=== PATIENT | male | born 1985 | race Caucasian/White ===

== ENCOUNTER 2020-06-21 13:14 | Emergency (ER) | payer MEDICAID ==
[~2020-06-21] VITALS: Ht 185.4 cm; Wt 85.0 kg
[2020-06-21 13:27] VITALS: BP 126/79
== END 2020-06-21 14:42 | disposition home or self-care (01) ==
LOC: ED 14:35
DX: S61.212A Laceration without foreign body of right middle finger without damage to nail, initial encounter (principal); Z87.891 Personal history of nicotine dependence; X58.XXXA Exposure to other specified factors, initial encounter; Y93.89 Activity, other specified; Y92.009 Unspecified place in unspecified non-institutional (private) residence as the place of occurrence of the external cause; Y99.8 Other external cause status
CPT/HCPCS: 29130; 99283

== ENCOUNTER 2020-07-01 11:18 | Day surgery (SDC) | payer MEDICAID ==
[~2020-07-01] VITALS: Ht 185.4 cm; Wt 83.0 kg
[~2020-07-01 11:18] MED LIST: BUPIVACAINE/PF 0.5% ONE; EPHEDRINE 50 MG/ML, 1ML IVPush PRN; FENTANYL PF 100 MCG/2ML IV PRN; HYDROmorphone 1 MG/ML, 1ML INJ IVPush PRN; LABETALOL 5MG/ML, 20ML IV PRN; ONDANSETRON 2MG/ML, 2ML IVPush PRN; OXYcodone 5 MG/5 ML ORAL.SOL UDC PO PRN; PROMETHAZINE 25 MG/ML, 1ML IVPush PRN; hydrALAzine 20 MG/ML, 1ML IV PRN
[2020-07-01 11:54] VITALS: BP 142/71
[2020-07-01] MEDS ORDERED: ACETAMINOPHEN 500 MG TABLET PO ONE (12:30)
[2020-07-01] MEDS ORDERED: CHLORHEXIDINE 15 ML UDC ONE (12:30)
[2020-07-01] MEDS ORDERED: MIDAZOLAM 1 MG/ML, 2ML ONE (12:50)
[2020-07-01] MEDS ORDERED: FENTANYL PF 250 MCG/5ML ONE (12:50)
[2020-07-01] MEDS ORDERED: DEXAMETHASONE 4 MG/ML, 5ML ONE (12:51)
[2020-07-01] MEDS ORDERED: PROPOFOL 50 ML ONE (12:51)
[2020-07-01] MEDS ORDERED: ONDANSETRON 2MG/ML, 2ML ONE (12:51)
[2020-07-01] MEDS ORDERED: LIDOCAINE-MPF 1%, 2ML ONE (12:52)
[2020-07-01] MEDS ORDERED: CEFAZOLIN 1,000 MG ONE (12:54)
[2020-07-01] MEDS ORDERED: BUPIVACAINE/PF 0.5% ONE (13:09)
[2020-07-01] MEDS ORDERED: KETOROLAC 30 MG/1 ML ONE (13:34)
[2020-07-01] MEDS ORDERED: CLINDAMYCIN 150 MG/ML, 6ML ONE (13:34)
[2020-07-01] MEDS ORDERED: BUPIVACAINE/PF 0.25% INFIL ONE (13:43)
== END 2020-07-01 16:00 | disposition home or self-care (01) ==
LOC: OUT 11:18
PROVIDERS: ATTEND Surgery Surgery of the Hand
DX: S66.324A Laceration of extensor muscle, fascia and tendon of right ring finger at wrist and hand level, initial encounter (principal); F17.210 Nicotine dependence, cigarettes, uncomplicated; X58.XXXA Exposure to other specified factors, initial encounter; Y93.89 Activity, other specified; Y92.89 Other specified places as the place of occurrence of the external cause; Y99.8 Other external cause status; Z88.8 Allergy status to other drugs, medicaments and biological substances
CPT/HCPCS: 26418; J1100; J1885; J2250; J2405; J2704; J3010; J0690

== ENCOUNTER 2020-07-02 15:04 | Emergency (ER) | payer MEDICAID ==
[~2020-07-02] VITALS: Ht 185.4 cm; Wt 82.6 kg
[2020-07-02 15:17] VITALS: BP 132/80
[2020-07-02] MEDS ORDERED: NEOSPORIN OINT. PKT 1 PACKET ONE (15:54)
== END 2020-07-02 16:11 | disposition home or self-care (01) ==
LOC: ED 16:10
DX: L03.011 Cellulitis of right finger (principal); L76.82 Other postprocedural complications of skin and subcutaneous tissue; F17.200 Nicotine dependence, unspecified, uncomplicated
CPT/HCPCS: 99283

== ENCOUNTER 2020-07-14 06:55 | Emergency (ER) | payer MEDICAID ==
[~2020-07-14] VITALS: Ht 182.9 cm; Wt 83.8 kg
[2020-07-14 07:00] VITALS: BP 120/79
[2020-07-14] MEDS ORDERED: CLIN300C9 PO (07:14)
--- NOTE | 2020-07-14 07:14 | NUR ---
PT IS A 34/M COMPLAINING OF PAIN TO THE RIGHT 3RD DIGIT AFTER TENDON REPAIR SURGERY ON 07/01/20. THERE IS SOME REDNESS AND SWELLING. PT STATES HE IS COMPLIANT WITH HIS ANTIBIOTICS PRESCRIBED AFTER SURGERY. PROVIDER AT BEDSIDE FOR EVAL. CALL LIGHT WITHIN REACH. NO FURTHER NEEDS AT THIS TIME.
[2020-07-14] MEDS ORDERED: CLINDAMYCIN 300 MG CAPSULE ONE (07:18)
[2020-07-14] MEDS ORDERED: CLINDAMYCIN 300 MG CAPSULE PO ONE (07:30)
== END 2020-07-14 08:15 | disposition home or self-care (01) ==
LOC: ED 07:10
DX: S60.031A Contusion of right middle finger without damage to nail, initial encounter (principal); Z48.00 Encounter for change or removal of nonsurgical wound dressing; F17.210 Nicotine dependence, cigarettes, uncomplicated; Z91.19 Patient's noncompliance with other medical treatment and regimen; W20.8XXA Other cause of strike by thrown, projected or falling object, initial encounter; Y93.89 Activity, other specified; Y92.89 Other specified places as the place of occurrence of the external cause; Y99.0 Civilian activity done for income or pay
CPT/HCPCS: 99283

== ENCOUNTER 2020-08-09 03:32 | Emergency (ER) | payer MEDICAID ==
[~2020-08-09] VITALS: Ht 185.4 cm; Wt 84.0 kg
[~2020-08-09 03:32] MED LIST changes: -BUPIVACAINE/PF 0.5% ONE; +CLIN300C9 PO; -EPHEDRINE 50 MG/ML, 1ML IVPush PRN; -FENTANYL PF 100 MCG/2ML IV PRN; -HYDROmorphone 1 MG/ML, 1ML INJ IVPush PRN; -LABETALOL 5MG/ML, 20ML IV PRN; -ONDANSETRON 2MG/ML, 2ML IVPush PRN; -OXYcodone 5 MG/5 ML ORAL.SOL UDC PO PRN; -PROMETHAZINE 25 MG/ML, 1ML IVPush PRN; -hydrALAzine 20 MG/ML, 1ML IV PRN
[2020-08-09 03:38] VITALS: BP 114/78
[2020-08-09] MEDS ORDERED: CLINDAMYCIN 300 MG CAPSULE PO ONE (04:00)
[2020-08-09] MEDS ORDERED: CLINDAMYCIN 300 MG CAPSULE ONE (04:00)
== END 2020-08-09 04:22 | disposition home or self-care (01) ==
LOC: ED 04:00
DX: L03.011 Cellulitis of right finger (principal); F17.290 Nicotine dependence, other tobacco product, uncomplicated; Z88.1 Allergy status to other antibiotic agents
CPT/HCPCS: 99283; 99406

== ENCOUNTER 2020-09-20 23:25 | Emergency (ER) | payer MEDICAID ==
[~2020-09-20] VITALS: Ht 185.4 cm; Wt 89.2 kg
--- NOTE | 2020-09-21 00:18 | NUR ---
PT STATES, SURGERY ON RIGHT HAND THIRD FINGER THAT IS HEALING TODAY THAT IT HAD AN INFECTION THAT WENT TO THE BONE" THAT IT HAS NOT HEALED COMPLETLY.
--- NOTE | 2020-09-21 00:22 | NUR ---
PT STATES, "THAT PAIN IS ONLY WHEN BUMPS HIS FINGER OR REACHES INTO HAND. SURGERY WAS ABOUT TWO MONTHS AGO. LAST TWO DAYS IT HAS BEEN SPEWING PUSS"
[2020-09-21 01:03] VITALS: BP 122/78
== END 2020-09-21 01:09 | disposition home or self-care (01) ==
LOC: ED 09-21 00:40
DX: T81.31XA Disruption of external operation (surgical) wound, not elsewhere classified, initial encounter (principal); M79.641 Pain in right hand
CPT/HCPCS: 99283

== ENCOUNTER 2020-09-27 21:23 | Emergency (ER) | payer MEDICAID ==
[~2020-09-27] VITALS: Ht 185.4 cm; Wt 89.0 kg
[2020-09-27 21:31] VITALS: BP 142/87
--- NOTE | 2020-09-27 22:24 | NUR ---
PT PROVIDED PLINT AND GIVEN REFERRAL BACK TO [facility] WHERE HE GOT HIS SUTURES PLACED. ERP UNABLE TO GET SUTURES OUT. PT UNDERSTANDING AND ACCEPTING OF D/C INSTRUCTION, STEADY AMBULATING
== END 2020-09-27 22:27 | disposition home or self-care (01) ==
LOC: ED 22:10
DX: S61.212D Laceration without foreign body of right middle finger without damage to nail, subsequent encounter (principal); G89.29 Other chronic pain; M79.644 Pain in right finger(s); Z48.02 Encounter for removal of sutures; F17.210 Nicotine dependence, cigarettes, uncomplicated; X58.XXXD Exposure to other specified factors, subsequent encounter
CPT/HCPCS: 29130; 99283